=== PATIENT | female | born 1985 | race Two or more races ===

== ENCOUNTER 2018-07-01 08:20 | Inpatient (IN) | payer OTHER ==
[~2018-07-01] VITALS: Ht 154.9 cm; Wt 62.1 kg
[2018-07-01] VITALS (14 sets, daily range): BP systolic 100–130; BP diastolic 39–87
[~2018-07-01 08:20] MED LIST: Dexamethasone 20mg/5ml IVP ONE; ceFAZolin sod 1 GM in NS 55 ML IVPB ONE
[2018-07-01] MEDS ORDERED: OXYCONTIN20 MG ORAL (09:01)
[2018-07-01] MEDS ORDERED: LR 1000ml 1,000 ML IVLG SCH (09:02)
--- NOTE | 2018-07-01 09:03 | Immediate Post-Op Evaluation ---
John Paz MD Jul 01, 2018 09:03
[2018-07-01] MEDS ORDERED: Zemuron 50mg/5ml Inj IV ONE (09:04)
[2018-07-01] MEDS ORDERED: Heparin 5000 units/ml inj ONE (09:13)
[2018-07-01] MEDS ORDERED: Ropivacaine 5mg/ml Vial 30ml INJ ONE (09:14)
[2018-07-01] MEDS ORDERED: Thrombin 5000 units TOPIC ONE (09:14)
[2018-07-01] MEDS ORDERED: Gelfoam Size TOPIC ONE (09:14)
[2018-07-01] MEDS ORDERED: Lidocaine 1% 10mg/ml/Epi 0.005mg/ml 30ml vial INJ ONE (09:14)
[2018-07-01] MEDS ORDERED: TransDerm Scop 1mg/72HR Patch TDERMAL PRN (09:15)
[2018-07-01] MEDS ORDERED: LORazepam Inj 2mg/ml 1ml IV PRN (09:15)
[2018-07-01] MEDS ORDERED: Acetaminophen (Non formulary) 100 ML IV ONE (09:15)
[2018-07-01] MEDS ORDERED: Atropine Sulfate 0.4mg/ml inj IVP PRN (09:15)
[2018-07-01] MEDS ORDERED: Bacitracin 50000 Units Vial ONE (09:15)
[2018-07-01] MEDS ORDERED: Midazolam 2mg/2ml Inj IVP PRN (09:15)
[2018-07-01] MEDS ORDERED: Meperidine 50mg/ml Inj(FOR RIGORS ONLY) IVP PRN (09:15)
[2018-07-01] MEDS ORDERED: oxyCODONE HCL/Acetaminophen 5/325mg ORAL PRN (09:15)
[2018-07-01] MEDS ORDERED: Metoclopramide 10mg/2ml Inj IVP PRN (09:15)
[2018-07-01] MEDS ORDERED: HYDROcodone/Acetamin 5/325 tab ORAL PRN (09:15)
[2018-07-01] MEDS ORDERED: oxyCODONE 5mg IR tab ORAL PRN (09:15)
[2018-07-01] MEDS ORDERED: Lidocaine 1% Plain 30 ml INJ ONE (09:15)
[2018-07-01] MEDS ORDERED: Ketorolac 30mg Inj IV PRN ×2 (09:15)
[2018-07-01] MEDS ORDERED: Labetalol 5mg/ml 20ml vial IV PRN (09:15)
[2018-07-01] MEDS ORDERED: Chloraseptic Spray 20mL Bottle ORAL PRN (09:15)
[2018-07-01] MEDS ORDERED: Hydromorphone 0.5mg/0.5ml inj IVP PRN (09:15)
[2018-07-01] MEDS ORDERED: HYDROcodone/Acetamin 7.5/325 tab ORAL PRN (09:15)
[2018-07-01] MEDS ORDERED: fentaNYL 100 mcg/2 mL IV PRN (09:15)
[2018-07-01] MEDS ORDERED: DiphenhydrAMINE 50mg/ml Inj IVP PRN (09:15)
--- NOTE | 2018-07-01 09:17 | Anethesia Preoperative Eval ---
Anesthesia Pre-op PMH/ROS General Date of Evaluation: Jul 01, 2018 Anesthesiologist: Jackson ASA Score: ASA 2 Mallampati Score Class I : Soft palate, uvula, fauces, pillars visible Class II: Soft palate, uvula, fauces visible Class III: Soft palate, base of uvula visible Class IV: Only hard plate visible Mallampati Classification: Class I Surgeon: Tawana Diagnosis: Back Pain Surgical Procedure: ALIF L5-S1 Anesthesia History: none Social History: current smoker Family History: no anesthesia problems Allergies: Coded Allergies: No Known Allergies (Unverified , 07/01/18) Medications: see eMAR Patient NPO?: Yes Past Medical History Gastrointestinal/Genitourinary: Reports: other - Colitis Neurologic/Psychiatric: Reports: depression/anxiety, other - Migranes PSxH Narrative: Cholecystectomy, C/Sx2, Molar Anesthesia Pre-op Phys. Exam Physician Exam Last Vital Signs Date Time Temp Pulse Resp B/P (MAP) Pulse Ox O2 Delivery O2 Flow Rate FiO2 07/01/18 09:02 Room Air Constitutional: NAD Neurologic: CN 2-12 intact Cardiovascular: RRR Respiratory: CTA Gastrointestinal: S/NT/ND Airway Exam Mallampati Score: Class I MO: full ROM: full Teeth: intact Anesthesia Pre-op A/P Labs Urine Test Test 07/01/18 08:35 Urine HCG, Qualitative Pending Risk Assessment & Plan Assessment: ASA 2 Plan: GA, SED, GlideScope Go Status Change Before Surgery: No Pre-Antibiotics Dru Grams Ancef IV Given Within 1 Hr of Incision: Yes Time Given: 10:31 John Paz MD Jul 01, 2018 09:17
[2018-07-01] MEDS ORDERED: Dexamethasone 20mg/5ml ONE (09:25)
[2018-07-01] MEDS ORDERED: Lidocaine 1% MPF 10mg/ml 5ml ONE (09:46)
[2018-07-01] MEDS ORDERED: Dexamethasone 4mg/ml vial ONE (09:46)
[2018-07-01] MEDS ORDERED: Sodium Chloride 10ml vial INJ ONE (09:46)
[2018-07-01] MEDS ORDERED: fentaNYL 100 mcg/2 mL IV ONE ×2 (09:55→12:12)
[2018-07-01] MEDS ORDERED: NS Irrig 1000ml ONE (10:00)
[2018-07-01] MEDS ORDERED: Neostigmine 1mg/ml 10ml Inj ONE (10:00)
[2018-07-01] MEDS ORDERED: LR 1000ml ONE (10:00)
[2018-07-01] MEDS ORDERED: Sterile Water Irrig 1000ml IRRIG ONE (10:00)
[2018-07-01] MEDS ORDERED: Propofol 1,000mg/ 100ml btl IV ONE (10:00)
--- NOTE | 2018-07-01 10:13 | Pre-Procedure Note/Attestation ---
Pre-Procedure Note/Attestation Complete Prior to Procedure Planned Procedure: not applicable Procedure Narrative: ALIF L5-S1 anterior plate L5-S1 possible posterior microdiscectomy Indications for Procedure Pre-Operative Diagnosis: Post trauma back pain with L5-S1 instability Attestation I attest that I discussed the nature of the procedure; its benefits; risks and complications; and alternatives (and the risks and benefits of such alternatives ), prior to the procedure, with the patient (or the patient's legal financial sales representative). I attest that, if there was a reasonable possibility of needing a blood transfusion, the patient (or the patient's legal financial sales representative) was given the [facility] standardized written summary, pursuant to the Yrn Ulysses Blood Safety Act ([place] Health and Safety Code # 1645, as amended). I attest that I re-evaluated the patient just prior to the surgery and that there has been no change in the patient's H&P, except as documented below: Damir Gilliam MD Jul 01, 2018 10:13
--- NOTE | 2018-07-01 10:48 | Immediate Post-Op Evaluation ---
Immediate Post-Op Evalulation Immediate Post-Op Evalulation Procedure: ALIF L5-S1 Date of Evaluation: Jul 01, 2018 Time of Evaluation: 12:48 IV Fluids: 800 LR Blood Products: 0 Estimated Blood Loss: 50 Urinary Output: 0 Blood Pressure Systolic: 101 Blood Pressure Diastolic: 39 Pulse Rate: 76 Respiratory Rate: 16 O2 Sat by Pulse Oximetry: 96 Temperature (Fahrenheit): 97.6 Pain Score (1-10): 3 Nausea: No Vomiting: No Complications 0 Patient Status: awake, reacts, patent, extubated, none Hydration Status: adequate Dru Grams Ancef IV Given Within 1 Hr of Incision: Yes Time Given: 10:31 John Paz MD Jul 01, 2018 10:48
--- NOTE | 2018-07-01 10:49 | 48 Hour Post Anesthesia Eval ---
Post Anesthesia Evaluation Procedure: ALIF L5-S1 Date of Evaluation: Jul 01, 2018 Time of Evaluation: 12:48 Blood Pressure Systolic: 103 0: 56 Pulse Rate: 78 Respiratory Rate: 18 Temperature (Fahrenheit): 98.2 O2 Sat by Pulse Oximetry: 96 Airway: patent Nausea: No Vomiting: No Pain Intensity: 3 Hydration Status: adequate Cardiopulmonary Status: 0 Mental Status/LOC: patient returned to baseline Follow-up Care/Observations: 0 Post-Anesthesia Complications: 0 Follow-up care needed: N/A John Paz MD Jul 01, 2018 10:49
[2018-07-01] MEDS ORDERED: Phenylephrine 10mg/ml Vial ONE (10:54)
[2018-07-01] MEDS ORDERED: Glycopyrrolate 0.2mg/ml 1ml Vial ONE (12:00)
[2018-07-01] MEDS ORDERED: Naloxone 0.4mg/ml Inj ONE (12:03)
--- NOTE | 2018-07-01 12:06 | Brief Operative Note ---
Immediate Post Operative Note Operative Note Pre-op Diagnosis: Post trauma back pain with L5-S1 instability Procedure: ALIF L5-S1, Anterior plate, SSEP, Xray, High Power magnification Post-op Diagnosis: same as pre-op Surgeon: Tawana Additional Surgeons: Danie Anesthesiologist: Jackson Anesthesia: general Specimen: yes Complications: none Condition: stable Fluids: anesthesia Estimated Blood Loss: volume Drains: none Implant(s) used?: Yes Damir Gilliam MD Jul 01, 2018 12:06
[2018-07-01] MEDS ORDERED: Naloxone 0.4mg/ml Inj IVP PRN (12:15)
[2018-07-01] MEDS ORDERED: Rate Change PCA 1 Each MISC PRN (13:15)
[2018-07-01] MEDS ORDERED: PCA HYDROmorphone 1mg/ml 30 ML IV ONE (13:35)
--- NOTE | 2018-07-01 14:15 | Diagnostic Imaging Report ---
Indication: Back pain Comparison: None Findings: 5 fluoroscopic views of the lumbar spine were obtained. Intraoperative imaging showing anterior fusion of the L5-S1 with discectomy and disc replacement. IMPRESSION: Intraoperative imaging
--- NOTE | 2018-07-01 14:20 | NUR ---
NURSE NOTES: Patient arrived to unit at 1410 accompanied by RN. Received report from Cora DUEÑAS. Patient is asleep, but arousable to voice on arrival, no acute distress noted, patient reporting no pain. IV intact and asymptomatic, SCD's in place. Abdominal dressing assessed clean, dry, intact. Patient on 3L NC. VS assessed and stable. Patient's partner is at the bedside and updated on plan of care. Side rails upx3, bed low and locked, call light in reach. Will continue to monitor.
--- NOTE | 2018-07-01 15:00 | NUR ---
NURSE NOTES: Patient re-educated in use of CHIEF RADIOLOGY and reports understanding of provided education.
[2018-07-01] MEDS ORDERED: PCA HYDROmorphone 1mg/ml 30 ML IV PRN (15:15)
[2018-07-01] MEDS: HYDROmorphone 1mg/ml Carpuject SUBQ PRN ×2 (15:20→18:33)
[2018-07-01] MEDS ORDERED: Dronabinol 2.5mg Cap ORAL SCH (15:44)
[2018-07-01] MEDS: D5 1/2NS 1,000 ML IV SCH (16:30)
--- NOTE | 2018-07-01 16:35 | NUR ---
NURSE NOTES: Dr. Friend informed patient is on the unit. Stated he will come to see patient later.
--- NOTE | 2018-07-01 17:02 | Cardiology Progress Note ---
Assessment/Plan Assessment/Plan [id number] Objective Last 24 Hour Vital Signs Date Time Temp Pulse Resp B/P (MAP) Pulse Ox O2 Delivery O2 Flow Rate FiO2 07/01/18 14:55 16 07/01/18 14:25 16 07/01/18 14:10 16 07/01/18 14:10 98.2 07/01/18 13:55 98.2 62 20 120/74 100 Nasal Cannula 3 07/01/18 13:55 18 07/01/18 13:41 17 07/01/18 13:40 62 20 121/79 100 Nasal Cannula 3 07/01/18 13:25 60 17 115/75 100 Simple Mask 6 07/01/18 13:10 65 22 115/71 100 Simple Mask 6 07/01/18 13:00 67 20 108/64 100 Simple Mask 6 07/01/18 12:47 81 20 102/58 100 Simple Mask 6 07/01/18 12:42 72 19 100/54 96 Simple Mask 6 07/01/18 12:37 97.6 82 16 101/39 96 Simple Mask 6 07/01/18 12:37 78 18 96 07/01/18 12:36 76 16 96 07/01/18 09:02 Room Air Laboratory Tests Test 07/01/18 08:35 Urine HCG, Qualitative Negative (NEGATIVE) Hayden Friend MD Jul 01, 2018 17:02
--- NOTE | 2018-07-01 17:03 | NUR ---
NURSE NOTES: Informed Dr. Friend patient has no post-op antibiotics ordered. stated he will follow up with Dr. Gilliam regarding post-op antibiotics. No further orders.
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
[2018-07-01] MEDS: ceFAZolin sod 1 GM in D5W 55 ML IVPB SCH (18:50)
[2018-07-01] MEDS: PCA shift volume MISC SCH (19:00)
--- NOTE | 2018-07-01 19:26 | NUR ---
CASE MANAGEMENT: REVIEW 32Y/F DIRECT ADMIT FROM HOME CC: BACK PAIN SI: POST TRAUMA BACK PAIN WITH L5-S1 INSTABILITY ALIF L5-S1 07/01 T 97.1 HR 68 RR 18 BP 106/69 SAT 96% SIMPLE MASK FLOW RATE 6.0 UA: HCG QUAL NEG SI: LACTATED RINGER'S IV X1 DECADRON IV X1 CEFAZOLIN IV X1 ZEMURON IV X1 MAG SULFATE IV X1 PATIENT ADMITTED TO MED/SURG UNIT 07/01/2018 DCP: PATIENT IS FROM HOME
--- NOTE | 2018-07-01 19:41 | NUR ---
HAND-OFF: Report given to Irma DUEÑAS. Patient is in stable condition.
--- NOTE | 2018-07-01 20:15 | NUR ---
NURSE NOTES: Received report from LEANA Samuels. Patient is aaox4. VSS, no shortness of breath. Neuro checks WNL, mild numbness tingling left toe. Will continue to monitor. Pain controlled by AS400 PROGRAMMER ANALYST. AS400 PROGRAMMER ANALYST teaching reinforced. IV site intact/patent with fluids running. Spouse at bedside. Bed low, call light within reach.
--- NOTE | 2018-07-01 21:30 | Operative Note - Dictated ---
DATE OF OPERATION: 07/01/2018 SURGEON: 1. Damir Gilliam, PhD, M.D., Orthopedic spine. 2. Dr. Helton, Vascular. ANESTHESIOLOGIST: John Paz M.D. ANESTHESIA: General with intubation. ADMITTING/PREOPERATIVE DIAGNOSIS: Post trauma lumbar back pain with instability. POSTOPERATIVE DIAGNOSIS: Post trauma lumbar back pain with instability. OPERATIVE PROCEDURE: Anterior (right) L5-S1 interbody reconstruction, fusion, correction deformity, internal fixation, anterior internal plate fixation, SSEP monitoring, high-power magnification dissection, intraoperative x-rays interpreted by surgeons. Placement of osteopromotive material. ESTIMATED BLOOD LOSS: Minimal. COMPLICATIONS: None. POSTOP CONDITION: Good/stable. DESCRIPTION OF PROCEDURE: The patient was brought to the operating room and in supine position, general anesthesia with intubation was induced. IV antibiotics, IV Decadron were administered 30 minutes prior to incision time. The patient was appropriately positioned, sterilely prepped and draped free in usual sterile fashion. Please see separate report by Dr. Helton for access and closure, vascular. L5-S1 was approached from the right lateral aspect by vascular surgery. Definition of midline and correct space in AP and lateral planes with sterile needle placed 3 mm into the disk space. Level marked. Needle removed. Annulotomy performed followed with diskectomy to the posterior longitudinal ligament. Midline rent in the posterior longitudinal ligament/anulus identified and retrieval of the known herniated nucleus pulposus. No CSF leak at any time. SSEP monitoring stable. Appropriate graft dimensions determined with trials with fluoroscopic guidance interpreted by surgeons. A 4-degree lordotic aero-L prosthesis containing Bio-4 osteopromotive material was tamped in position under direct observation, high-power magnification with fluoroscopic guidance. Fluoroscopic imaging revealed excellent alignment and positioning. Internal fixation placed. Anterior internal plate fixation was undertaken with four 22 mm screws placed in a compressive fashion and locked into position. AP and lateral radiographs were obtained, recorded, and printed demonstrating excellent alignment and positioning. The patient was stable at all times. SSEP monitoring stable. Wound was copiously irrigated with antibiotic-containing saline. Please see closure report by Dr. Helton. Damir Gilliam M.D. DR: BARBIE JOB#: [id number] CC:
[2018-07-01] MEDS: Dronabinol 2.5mg Cap ORAL SCH (22:38)
--- NOTE | 2018-07-02 | Operative Note - Dictated ---
DATE OF OPERATION: 07/01/2018 VASCULAR SURGEON: Benito Helton M.D. SPINE SURGEON: Damir Gilliam M.D. PREOPERATIVE DIAGNOSIS: Lumbar pain. POSTOPERATIVE DIAGNOSIS: Lumbar pain. PROCEDURE PERFORMED: Anterior retroperitoneal exposure of L5-S1 vertebral interspace, right retroperitoneal approach. INDICATIONS: The patient is a very pleasant woman who was seen prior to surgery. She has been scheduled for an anterior spine surgery at L5-S1. She has no prior history of deep venous thrombosis or bleeding complications. 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 As she has been made aware of the risks of vascular surgery including vascular injury, possible need for blood transfusion, deep venous thrombosis. DESCRIPTION OF FINDINGS: A low-transverse incision was made through her prior scar. Flaps were raised superiorly. A right retroperitoneal approach was used. There was no peritoneal or ureteral violation. There was no vascular injury. Exposure of L5-S1 was obtained below the iliac bifurcation confirmed using fluoroscopy. On completion, the peritoneum and ureter were intact. The iliac vessels were intact. BLOOD LOSS: Less than 100 mL. COMPLICATIONS: None. DESCRIPTION OF PROCEDURE: The patient was taken to the operating room. General anesthesia was used. Antibiotics were given. The patient's abdomen was prepped and draped. Appropriate time-out for the procedure taken. A low-transverse incision was made above the pubic symphysis. Flaps were raised superiorly. The anterior fascia was incised longitudinally in the midline. A plane was identified posterior to the right rectus abdominis and developed posterolaterally towards the patient's right. Retroperitoneal space was entered below the arcuate line. The peritoneum and ureter were mobilized towards the patient's left exposing the right common iliac artery and vein. Dissection was carried on the medial surface of the right common vein and the middle sacral vessels were ligated with vascular clips. Dissection was carried superiorly along the medial aspect of the right common iliac vein until the confluence of the right and left iliac veins was identified. This allowed us to then retract the right and left iliac veins laterally to expose the anterior surface of L5-S1. The Omni retractor was set in place. Fluoroscopy was used to confirm the appropriate level. Instrumentation performed at L5-S1 was dictated separately. On completion, the retractor was gently removed. The peritoneum and ureter were intact. The iliac vessels were intact. At this point, the anterior fascia was then closed using #1 PDS in a running fashion and then the skin and subcutaneous tissue were closed with 3-0 Vicryl and 4-0 Monocryl in running subcuticular closure technique. Benito Helton M.D. DR: Fly JOB#: [id number] CC:
[2018-07-02] MEDS: HYDROmorphone 1mg/ml Carpuject SUBQ PRN ×5 (00:04→20:05)
[2018-07-02] MEDS: D5 1/2NS 1,000 ML IV SCH ×3 (00:04→14:46)
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
[2018-07-02] MEDS: Dronabinol 2.5mg Cap ORAL SCH ×3 (06:04→22:23)
[2018-07-02] MEDS: ceFAZolin sod 1 GM in D5W 55 ML IVPB SCH ×2 (06:04→12:51)
[2018-07-02] MEDS: PCA shift volume MISC SCH (07:00)
--- NOTE | 2018-07-02 07:41 | NUR ---
NURSE NOTES: Pt awake Dr Barrett in to see pt, explained pain medications. Pt able to understand directions. Shaw light is in reach
--- NOTE | 2018-07-02 07:49 | NUR ---
HAND-OFF: Report given to LEANA Carias. Patient stable.
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
--- NOTE | 2018-07-02 11:20 | Cardiology Progress Note ---
Assessment/Plan Assessment/Plan Lumbar spine injury, status post surgery. dressign look clean and dry no surrounding erythema seems to be doing ok no flatus or bm has walked dvt ppx IS encouraged Subjective Cardiovascular: Reports: lightheadedness; Denies: chest pain Respiratory: Denies: shortness of breath Gastrointestinal/Abdominal: Reports: abdominal pain; Denies: blood in stool, nausea Genitourinary: Denies: frequency Objective Last 24 Hour Vital Signs Date Time Temp Pulse Resp B/P (MAP) Pulse Ox O2 Delivery O2 Flow Rate FiO2 07/02/18 09:00 Room Air 07/02/18 08:00 16 07/02/18 04:00 18 07/02/18 00:00 16 07/01/18 21:00 Room Air 07/01/18 20:00 98.0 79 20 105/60 (75) 99 07/01/18 20:00 16 07/01/18 19:03 98.2 07/01/18 17:10 98.6 75 18 123/80 (94) 99 07/01/18 16:10 97.1 68 18 106/69 (81) 96 07/01/18 16:00 16 07/01/18 15:25 16 07/01/18 15:10 97.7 71 18 111/72 (85) 100 07/01/18 14:55 16 07/01/18 14:40 98.2 85 16 121/79 (93) 100 07/01/18 14:25 16 07/01/18 14:15 Nasal Cannula 3.0 07/01/18 14:10 16 07/01/18 14:10 98.2 07/01/18 14:10 97.4 82 16 130/87 (101) 100 07/01/18 13:55 98.2 62 20 120/74 100 Nasal Cannula 3 07/01/18 13:55 18 07/01/18 13:41 17 07/01/18 13:40 62 20 121/79 100 Nasal Cannula 3 07/01/18 13:25 60 17 115/75 100 Simple Mask 6 07/01/18 13:10 65 22 115/71 100 Simple Mask 6 07/01/18 13:00 67 20 108/64 100 Simple Mask 6 07/01/18 12:47 81 20 102/58 100 Simple Mask 6 4/26/19 12:42 72 19 100/54 96 Simple Mask 6 07/01/18 12:37 97.6 82 16 101/39 96 Simple Mask 6 07/01/18 12:37 78 18 96 07/01/18 12:36 76 16 96 General Appearance: no apparent distress, alert Neck: supple Cardiovascular: normal rate, regular rhythm Respiratory/Chest: lungs clear Abdomen: normal bowel sounds, non tender, soft Extremities: no swelling Intake and Output 07/01/18 07/02/18 19:00 07:00 Intake Total 1395 ml 1372 ml Output Total 50 ml Balance 1345 ml 1372 ml Intake Oral 20 ml IV Total 1375 ml 1372 ml Output Estimated Blood Loss 50 ml # Voids 3 Hayden Friend MD Jul 02, 2018 11:20
--- NOTE | 2018-07-02 11:22 | NUR ---
NURSE NOTES: Pt up with PT tolerated well. Sat at bedside for 15 minutes. Returned to bed. Zofran given for complaints of nausea. Charge Nurse made aware per environmental services, air conditioning not functiong, . Pt refused to move rooms at this time, stated she will wait for fiance
[2018-07-02 11:55] VITALS: BP 101/50
--- NOTE | 2018-07-02 12:02 | NUR ---
NURSE NOTES: Dr Gilliam phoned to follow up on pt. Made aware that pt does have bowel sounds but is not passing . Flatus, per pt feels her stomach grumbling. Dr informed that pt was up with Physical Therapy, Gave okay to upgrade to clear liquid diet. Pt on the phone with [facility] who is stated he was bringing pt Suzan Tyler. Pt informed the importance of following meal orders. Explained the complication of procedure anteriorly for a posterior surgery. " I cant have crackers' Pt informed and educated on clear liquid diet. Per Md if diet is tolerated can upgrade to full liquid
--- NOTE | 2018-07-02 13:41 | NUR ---
CASE MANAGEMENT: REVIEW SI: POST TRAUMA BACK PAIN WITH L5-S1 INSTABILITY ALIF L5-S1 07/01 T 97.2 HR 60 RR 20 BP 101/50 SAT 100% ROOM AIR SI: MARINOL PO Q8HR CEFAZOLIN IV Q8HR D5 1/2 NS IVF @125ML/HR CORRECTIONAL MAINTENANCE TECHNICIAN DILAUDID PT EVAL CLEAR LIQUID DIET MED/SURG STATUS DCP: PATIENT IS FROM HOME
--- NOTE | 2018-07-02 14:29 | NUR ---
PT Note PT jose completed, treatment initiated. Patient was able to ambulate with the FWW; c/o pain on her surgical site. Patient needs PT services to increase her muscle strength and educate on proper body mechanics to improve her functional mobility and gait. Addendum: 07/02/18 at 1430 by LAURA PETER PT Amended: Links added.
--- NOTE | 2018-07-02 14:59 | NUR ---
NURSE NOTES: Pt up with physical therapy, at thsi point has not had flatus. Tolerated lunch well . no n/v related to meal. Current plan of care will be followed
[2018-07-02 15:55] VITALS: BP 105/81
--- NOTE | 2018-07-02 18:02 | NUR ---
NURSE NOTES: Dr Barrett followed up on pt and wanted to know if [facility] picked up pain medication. Aircraft Cleaning Supervisor asked pt if [facility] filled prescription for Percocet. Pt required pt teaching for having medications at bedside. Pt denies taking any additional doses, "maybe my fiance took some, you can look in my purse " Risk explained verbalized understanding. Total of 75 ordered, 7 are missing. Charge Nurse made aware, and verified count. called to inform him that 7 pills are missing. informed that medications will be sent down to pharmacy. No New Orders from Dr Arnold Rivera also informed that pt is requesting Marinol to take home, per MD that mediation can only be taken in the hospital. Pty made aware of Dr statement and recommendations
--- NOTE | 2018-07-02 18:15 | Progress Note ---
DATE: 07/02/2018 NOTE: "POOR AUDIO QUALITY" ACUTE PAIN MANAGEMENT PHYSICIAN PROGRESS NOTE MEDICATIONS: Medication administration record reviewed. Medications include IV fluid, Pepcid, DATA MANAGEMENT ENGINEER Dilaudid, Marinol, and Ancef. P.r.n. medications include Chloraseptic spray, Zofran, Mylanta, Benadryl, scopolamine patch, Soma, subcutaneous Dilaudid, Phenergan, oxycodone, and Narcan. LABORATORY STUDIES: No interval laboratory studies. OBJECTIVE: Vital signs within normal limits. Afebrile, pulse 79, respirations 20, blood pressure 105/60, and oxygen saturation 99% on room air. I spent over 60 minutes in consultation today. I saw the patient at bedside with the day nurse, LEANA Solis, along with the day nurse, LEANA Carias. The patient appears neurologically intact grossly. She has good motor strength in bilateral lower extremities with 5/5 dorsiflexion and 5/5 plantar flexion. There still was no flatus after her ALIF, anterior lumbar interbody fusion surgery yesterday. We will wait for improvement in bowel function, as evidenced by passing gas. In the meantime, the patient will continue on her IV fluids. She is voiding urine well. She will train with physical therapy later today. Incentive spirometer is at the bedside to encourage good pulmonary toilet. The patient does have sequential compression pneumatic devices in place for DVT prophylaxis. She is on scheduled Marinol that seems to be helpful for baseline analgesia. There was no oversedation. She has received multiple breakthrough doses of subcutaneous Dilaudid already. I did encourage the patient and the nurse to use the oral oxycodone as well. I did provide a prescription for Percocet for outpatient usage to the patient's boyfriend, Jose Carlos, who will try to go to a local pharmacy to try to get the medication dispensed. I will continue the DATA MANAGEMENT ENGINEER for this morning, however, once the DATA MANAGEMENT ENGINEER syringe empties, I will discontinue the DATA MANAGEMENT ENGINEER in order to help expedite her hospital discharge. She has tolerated subcutaneous Dilaudid p.r.n. injections well so far and they are made available every 3 hours p.r.n. Vikram Barrett M.D. DR: HE JOB#: [id number] CC:
--- NOTE | 2018-07-02 18:31 | NUR ---
NURSE NOTES: Pt continues not to pass flatus, bowel sound hypoactive in all quadrants. No nausea at this time. IV site remains patent
--- NOTE | 2018-07-02 18:49 | NUR ---
NURSE NOTES: No signs of possible dermatological side effects related to antibiotic therapy. Dose complete
--- NOTE | 2018-07-02 19:30 | NUR ---
NURSE NOTES: Received report from LEANA Carias. Patient is aaox4. VSS, no shortness of breath. Pain 5/10 . PROMOTIONAL DEMONSTRATOR teaching reinforced. IV site patent, fluids running. Neuro checks WNL Per patient, has not passed gas. Ambulated to restroom, tolerated well. Bed low, call light within reach.
--- NOTE | 2018-07-02 19:41 | NUR ---
HAND-OFF: Report given to Charo DUEÑAS.
[2018-07-02 20:00] VITALS: BP 107/70
--- NOTE | 2018-07-02 20:26 | NUR ---
NURSE NOTES: Per Dr. Barrett, IV fluids and TECHNICAL MANAGER CHEMICAL PLANT d/c'd. Patient toleration oral fluids. Dilaudid 1 mg subQ given for pain 7/10 lower back. Will continue to monitor.
[2018-07-03] MEDS: HYDROmorphone 1mg/ml Carpuject SUBQ PRN ×4 (01:53→19:55)
[2018-07-03 04:00] VITALS: BP 132/66
[2018-07-03] MEDS: oxyCODONE 5mg IR tab ORAL PRN ×3 (04:16→23:59)
[2018-07-03] MEDS: Dronabinol 2.5mg Cap ORAL SCH ×3 (05:48→21:21)
--- NOTE | 2018-07-03 07:15 | Progress Note ---
DATE: 07/03/2018 ACUTE PAIN MANAGEMENT PHYSICIAN PROGRESS NOTE MEDICATIONS: Medication administration record reviewed. Medications include Mylanta, Soma, Benadryl, Marinol, Pepcid, Dilaudid, Narcan, Zofran, oxycodone, Chloraseptic spray, and Phenergan. LABORATORY STUDIES: No interval laboratory studies. OBJECTIVE: VITAL SIGNS: Afebrile, pulse 100, respirations 18, blood pressure 132/66, and oxygen saturation 98% on room air. I spent over 60 minutes in consultation today. I saw the patient at the bedside with the nurse RN, Irma. The surgeon, Dr. Gilliam advanced the patient's diet to liquids yesterday after she was found to have active bowel sounds. The patient did tolerate the clear liquid diet and the full liquid diet. However, she still has not yet passed positive flatus, so we will not advance her diet further at this point. The patient's nausea, which often is chronic, has not been a big factor. Here in the hospital, she has tolerated the oral oxycodone pills at a dose of 15 mg here in the hospital. I would continue the breakthrough p.r.n. oxycodone along with the breakthrough subcutaneous Dilaudid. I have discontinued the CLAY THROWER to encourage ambulation and movement in and out of bed. The patient's boyfriend, Jose Carlos was able to take my Percocet prescription to an outpatient pharmacy and fill the prescription for outpatient usage. Quantity of 75 was dispense for outpatient usage. The patient will increase her incentive spirometer usage on my recommendation. The patient will continue to increase her ambulation as tolerated. We will await for flatus and improvement in her return of bowel function after ALIF procedure. She will continue to increase her ambulation as tolerated with the physical therapist and the nursing staff. She is breathing comfortably on room air and denies any shortness of breath or chest pain. Vikram Barrett M.D. DR: HE JOB#: [id number] CC:
--- NOTE | 2018-07-03 07:21 | NUR ---
HAND-OFF: Report given to LEANA Samuels. Patient stable.
[2018-07-03 08:00] VITALS: BP 101/65
--- NOTE | 2018-07-03 08:11 | NUR ---
NURSE NOTES: Received report from Irma DUEÑAS. Patient is awake alert and oriented x4 during rounds, no acute distress noted. Reporting pain in lower abdomen, medicated by police shift commander per order. IV intact and asymptomatic. SCD's in place. No complaints of numbness or tingling in extremities. Abdominal dressing clean, dry, intact. Patient updated on plan of care. Side rails upx2, bed low and locked, call light in reach. Will continue to monitor.
[2018-07-03] MEDS ORDERED: D5 1/2NS 1000ml IV ONE (08:38)
--- NOTE | 2018-07-03 11:42 | Cardiology Progress Note ---
Assessment/Plan Assessment/Plan Lumbar spine injury, status post surgery. dressign look clean and dry no surrounding erythema seems to be doing ok NO SIGN OF ASPIRATION no flatus or bm but has bs has walked dvt ppx IS encouraged Subjective Cardiovascular: Denies: chest pain, lightheadedness Respiratory: Denies: shortness of breath Gastrointestinal/Abdominal: Reports: abdominal pain Genitourinary: Denies: burning Subjective ice chips whent downthe wrong tube made her cough and that caused her abd pain to worsen Objective Last 24 Hour Vital Signs Date Time Temp Pulse Resp B/P (MAP) Pulse Ox O2 Delivery O2 Flow Rate FiO2 07/03/18 11:29 99.1 07/03/18 09:00 Room Air 07/03/18 04:00 99.1 100 18 132/66 (88) 98 07/02/18 21:00 Room Air 07/02/18 20:00 18 07/02/18 20:00 98.0 71 20 107/70 (82) 100 07/02/18 16:00 14 07/02/18 15:55 98.0 70 20 105/81 (89) 99 07/02/18 12:00 16 07/02/18 11:55 97.2 60 20 101/50 (67) 100 General Appearance: no apparent distress, alert Cardiovascular: normal rate Respiratory/Chest: lungs clear Abdomen: normal bowel sounds, soft, other - dressing is dry and clear Extremities: no swelling Intake and Output 07/02/18 07/03/18 19:00 07:00 Intake Total 2150 ml Balance 2150 ml Intake Oral 720 ml IV Total 1430 ml # Voids 8 Microbiology Date/Time Source Procedure Growth Status 07/01/18 09:00 Nasal Nares MRSA Culture - Final NO METHICILLIN RESISTANT STAPH AUREUS... Complete Hayden Friend MD Jul 03, 2018 11:42
[2018-07-03 12:00] VITALS: BP 108/63
[2018-07-03 16:00] VITALS: BP 114/68
--- NOTE | 2018-07-03 19:33 | NUR ---
HAND-OFF: Report given to Irma DUEÑAS. Patient is in stable condition.
[2018-07-03 20:00] VITALS: BP 129/79
--- NOTE | 2018-07-03 20:09 | NUR ---
NURSE NOTES: Received report from LEANA Samuels. Patient is aaox4. Pain 9/10 Dilaudid subQ given. Bowel sounds noted, has not passed gas. IV site patent. Bed low, call light within reach.
[2018-07-04] VITALS: BP_SYST 108; BP_SYST 124; BP_DIAS 62; BP_DIAS 84
[2018-07-04 04:00] VITALS: BP 124/84
[2018-07-04] MEDS: oxyCODONE 5mg IR tab ORAL PRN ×4 (04:09→19:13)
[2018-07-04] MEDS: Dronabinol 2.5mg Cap ORAL SCH ×3 (05:24→21:17)
--- NOTE | 2018-07-04 05:29 | NUR ---
NURSE NOTES: Patient ambulated 2 laps in hallway with FWW and RN assist. Tolerated well. Tylenol given for headache.
--- NOTE | 2018-07-04 06:15 | Progress Note ---
DATE: 07/04/2018 ACUTE PAIN MANAGEMENT PHYSICIAN PROGRESS NOTE MEDICATIONS: Medication administration record reviewed. Medications include Phenergan, Chloraseptic spray, , Zofran, Narcan, Dilaudid, Pepcid, Marinol, Benadryl, Soma, Mylanta, and Tylenol. LABORATORY STUDIES: No interval laboratory studies. OBJECTIVE: VITAL SIGNS: T-max last night of 100.6, currently afebrile. Pulse 102, respirations 20, blood pressure 129/79, and oxygen saturation 99% on room air. I spent over 60 minutes in consultation today. I saw the patient at the bedside with the nurse RN, Irma. I also spoke with the surgeon, Dr. Gilliam and yesterday's day nurse RN, Abril. The patient still has not been passing flatus. She does have a history of 2 previous C-sections, so it is imperative that the patient ambulate much more aggressively to initiate positive flatus. She has been tolerating full liquid diet, which will continue until she is better evidence of buddhist of bowel function. The patient has only been walking out of bed with the physical therapist once or twice per day. I implored the nursing team and the patient to be much more aggressive walking. This 32-year-old thin woman should be walking greater than 150 feet multiple times per day. I have scheduled with the nursing team to dose the pain medications, followed by walking exercises after the pain medications have peaked. With concerns of the narcotics slowing down her bowel function, I have greatly reduced the dosing of her subcutaneous Dilaudid to every 12 hours. The goal is simply to make available a dose for when she discharged to home. She already has a supply of 75 tablets of Percocet for support and picked up from the outside pharmacy. This bottle is being held here in the pharmacy at the hospital and will be dispensed to the patient at the time of discharge. Due to the patient does not have a ride home, she will contact the defense attorney to arrange an [employer] car service back to her home in [place]. The patient admits that she has been very poorly compliant with her incentive spirometer. She has not been coughing at end-expiration. The patient is a chronic smoker, so I explained that it is extremely important for her to aggressively cough for good pulmonary toilet. I will increase the dose of her oxycodone instant release from 15 mg to 20 mg. She has tolerated several doses of the oxycodone. The frequency to every three hours, which I will encourage if needed to effect increased ambulation. Vikram Barrett M.D. DR: SACHI JOB#: [id number] CC:
--- NOTE | 2018-07-04 07:33 | NUR ---
HAND-OFF: Report given to LEANA Samuels. Patient stable.
--- NOTE | 2018-07-04 07:45 | NUR ---
NURSE NOTES: Received report from Irma DUEÑAS. Patient is awake alert and oriented x4, no acute distress noted. Patient is reporting pain and nausea, will medicate as ordered. Patient reports she is still not passing flatus. Side rails upx2, bed low and locked, call light in reach. Will continue to monitor.
[2018-07-04 08:00] VITALS: BP 101/60
[2018-07-04] MEDS ORDERED: Docusate 100mg/10ml Liq NG SCH (09:00)
[2018-07-04] MEDS ORDERED: Docusate 100mg/10ml Liq ORAL SCH ×2 (09:45→18:00)
[2018-07-04 12:00] VITALS: BP 98/58
[2018-07-04] MEDS ORDERED: Magnesium Citrate Liq Btl ORAL SCH (13:00)
--- NOTE | 2018-07-04 13:30 | NUR ---
NURSE NOTES: Gave patient first 100mL of mag citrate per MD order. Also educated patient to ambulate as tolerated to promote bowel movement. Patient stated she understands education and will ambulate. Patient also encouraged to continue using IS. Will continue to monitor.
--- NOTE | 2018-07-04 14:31 | NUR ---
CASE MANAGEMENT:REVIEW 07/04/18 SI: POD #3 98.3 56 18 98/58 96% ON RA IS: DILAUDID SQ Q12HRS PRN MAG CITRATE PO X1 MARINOL PO Q8HRS PEPCID PO BID : MED/SURG STATUS 3 [facility]
[2018-07-04] MEDS ORDERED: HYDROmorphone 1mg/ml Carpuject SUBQ PRN ×2 (15:00)
--- NOTE | 2018-07-04 18:18 | NUR ---
NURSE NOTES: Patient up ambulating in hallway with steady gait. No acute distress noted.
--- NOTE | 2018-07-04 19:16 | NUR ---
NURSE NOTES: Patient given second dose (100mL) of mag citrate per MD order. Patient reports she is starting to feeling more "rumbling" in her bowels. Will endorse to next shift to give third dose in 6 hours if patient does not have BM.
--- NOTE | 2018-07-04 19:26 | NUR ---
HAND-OFF: Report given to Irma DUEÑAS. Endorsed to give last dose (100mL) of mag citrate if patient does not have BM in 6 hours. Patient is in stable condition.
--- NOTE | 2018-07-04 19:47 | Cardiology Progress Note ---
Assessment/Plan Assessment/Plan Lumbar spine injury, status post surgery. dressign look clean and dry no surrounding erythema seems to be doing ok dvt ppx IS encouraged no bm yet mag citrate being fgiven ecnouarage to walks Subjective Cardiovascular: Denies: chest pain, lightheadedness Respiratory: Denies: shortness of breath Gastrointestinal/Abdominal: Denies: abdominal pain Genitourinary: Denies: no symptoms Subjective drinkgin soem , takign cathartics Objective Last 24 Hour Vital Signs Date Time Temp Pulse Resp B/P (MAP) Pulse Ox O2 Delivery O2 Flow Rate FiO2 07/04/18 12:00 98.3 56 18 98/58 (71) 96 07/04/18 09:00 Room Air 07/04/18 08:00 98.6 68 18 101/60 (74) 97 07/04/18 04:00 99.0 76 20 124/84 (97) 100 07/04/18 00:00 98.6 76 18 108/62 (77) 98 07/03/18 21:00 Room Air 07/03/18 20:26 98.8 07/03/18 20:00 100.6 102 20 129/79 (96) 99 General Appearance: no apparent distress, alert Neck: supple Cardiovascular: normal rate, regular rhythm Respiratory/Chest: lungs clear, normal breath sounds Abdomen: non tender, soft, hypoactive bowel sounds Extremities: no swelling Intake and Output 07/03/18 07/04/18 19:00 07:00 Intake Total 650 ml Balance 650 ml Intake Oral 650 ml # Voids 2 Hayden Friend MD Jul 04, 2018 19:47
[2018-07-04 20:00] VITALS: BP 118/80
--- NOTE | 2018-07-04 21:24 | NUR ---
NURSE NOTES: Received report from LEANA Samuels. Patient is aaox4. VSS, pain 7/10 oxycodone given by LEANA Samuels. Patient states she has not passed gas yet. second dose of mag citrate given @ 1900. Discharge plan in place. Plan of care discussed. Will continue to monitor.
[2018-07-05] VITALS: BP 105/58
[2018-07-05] MEDS: oxyCODONE 5mg IR tab ORAL PRN ×4 (00:08→20:17)
--- NOTE | 2018-07-05 05:15 | Progress Note ---
DATE: 07/05/2018 ACUTE PAIN MANAGEMENT PHYSICIAN PROGRESS NOTE OBJECTIVE: VITAL SIGNS: T-max last night 99.5 at 8 p.m., currently afebrile, pulse 93, respirations 18, blood pressure 118/80, and oxygen saturation 99% on room air. LABORATORY STUDIES: No interval laboratory studies. MEDICATIONS: Medication administration record reviewed. Medications include Pepcid and Marinol. PRN medications include Chloraseptic spray, Zofran, Mylanta, Benadryl, Narcan, Tylenol, oxycodone, and Dilaudid. I spent over 60 minutes in consultation over the past 24 hours. I had multiple discussions with the surgeon, Dr. Gilliam along with the nursing team. I spoke with the day nurse, RN, Abril, and saw the patient at bedside this morning with the night nurse, RN, Irma. The patient is alert and oriented x3. The patient states that her leg pain has much improved compared to preop. She does still have considerable lumbar spine pain, including incisional pain. The increased dose of oral oxycodone 2 by mouth 20 milligrams has been more affective than the previous dose of 15 mg. The patient has been receiving her oral oxycodone fairly regularly, every 4 to 5 hours. She has not required the breakthrough Dilaudid injections, this improvement is encouraging. The patient has been increasing her ambulation considerably. She did use a front wheel walker yesterday, but has increased to ambulation greater than 400 feet. Later today, she expects that she may be able to walk without the walker. She has been able to walk in and out of bed to the restroom without any assistance. The patient has been more aggressive using her incentive spirometer. She has had no fevers over 99.5 over the past 36 hours with better end-expiratory coughing. The patient continues to receive her Marinol every 8 hours around the clock, and has had ample supply of marijuana for home usage. The patient still has not yet had a bowel movement. The surgeon, Dr. Gilliam dosed the patient with magnesium citrate 100 mg every 6 hours. The patient has received 3 doses, but we are still awaiting for a bowel movement. Hopefully with further time and continued aggressive ambulation, the patient's bowel movement will occur. She has been tolerating full liquid diet including ____ chicken broth without any vomiting. The patient does have chronic nausea, for which she uses her medical marijuana at home. We will continue to provide supportive care and await bowel movement prior to discharge. The patient has had 2 previous sections which may be contributing to postoperative delayed recovery of bowel function ____ previous surgical abdominal adhesions. Dr. Gilliam is following the patient's progress closely as ____. Vikram Barrett M.D. DR: MIGUEL JOB#: [id number] CC:
[2018-07-05] MEDS: Dronabinol 2.5mg Cap ORAL SCH ×3 (06:31→22:34)
[2018-07-05 08:00] VITALS: BP 107/70
--- NOTE | 2018-07-05 08:06 | NUR ---
HAND-OFF: Report given to LEANA Malcolm. Patient stable. Still no flatus or BM. Zofran IVP given for nausea. Encouraged to ambulate.
--- NOTE | 2018-07-05 08:14 | NUR ---
NURSE NOTES: During shift shift change patient alert awake with out distress, seating on bed eating breakfast, denies pain except abdominal discomfort, no neuro deficit noted, bed on low position locked, call light with in reach will continue to monitor.
[2018-07-05] MEDS: Docusate 100mg/10ml Liq ORAL SCH ×2 (09:12→17:24)
[2018-07-05] MEDS ORDERED: Magnesium Citrate Liq Btl ORAL ONE (09:30)
[2018-07-05] MEDS ORDERED: Relistor 12mg/0.6ml Vial SUBQ ONE (10:00)
[2018-07-05 12:20] VITALS: BP 109/69
--- NOTE | 2018-07-05 14:04 | Cardiology Progress Note ---
Assessment/Plan Assessment/Plan Lumbar spine injury, status post surgery. dressing look clean and dry no surrounding erythema seems to be doing ok dvt ppx IS encouraged no bm yet mag citrate being fgiven ecnouarage to walks d/w dr rosado Subjective Cardiovascular: Denies: chest pain, lightheadedness Respiratory: Denies: shortness of breath Gastrointestinal/Abdominal: Reports: constipated, other; Denies: abdominal pain Genitourinary: Denies: burning Subjective passed gas Objective Last 24 Hour Vital Signs Date Time Temp Pulse Resp B/P (MAP) Pulse Ox O2 Delivery O2 Flow Rate FiO2 07/05/18 00:00 98.7 71 16 105/58 (74) 99 07/04/18 21:00 Room Air 07/04/18 20:00 99.5 93 18 118/80 (93) 99 General Appearance: no apparent distress, alert Neck: supple Cardiovascular: normal rate, regular rhythm Respiratory/Chest: lungs clear Abdomen: normal bowel sounds, non tender Extremities: no swelling Intake and Output 07/04/18 07/05/18 19:00 07:00 Intake Total 750 ml Balance 750 ml Intake Oral 750 ml Hayden Friend MD Jul 05, 2018 14:04
--- NOTE | 2018-07-05 15:21 | NUR ---
CASE MANAGEMENT:REVIEW 07/05/18 SI: POD #4 98.7 71 16 105/58 99% ON RA IS: DILAUDID SQ Q12HRS PRN MAG CITRATE PO X1 MARINOL PO Q8HRS PEPCID PO BID : MED/SURG STATUS 3 [facility]: DC AFTER HAVING BOWEL MOVEMENT
[2018-07-05 16:00] VITALS: BP 104/67
--- NOTE | 2018-07-05 17:49 | NUR ---
NURSE NOTES: Patient reported she passed gas but no bowel movement yet bowel sound present but hypoactive, abdomen large round but soft to touch. patient refused Docusate stating the liquid docusate is making her nauseated. neuro check stable able to ambulate during my shift. one time pain medication given.
--- NOTE | 2018-07-05 19:30 | NUR ---
NURSE NOTES: Report received from LEANA Malcolm. No distress noted, bed in low position, locked, side rails up x2. Call light within reach
--- NOTE | 2018-07-05 19:30 | NUR ---
HAND-OFF: Report given to LEANA Irizarry patient stable condition.
[2018-07-05 20:00] VITALS: BP 110/67
--- NOTE | 2018-07-05 20:10 | NUR ---
NURSE NOTES: Dr Barrett called in to check on patient. No BM yet, flatus present. Dr gave orders: AURELIANO Ramirez, advance diet to regular. Noted James was DC'd earlier today.
[2018-07-06] VITALS: BP 110/60
[2018-07-06] MEDS: oxyCODONE 5mg IR tab ORAL PRN ×3 (03:05→18:08)
[2018-07-06 04:00] VITALS: BP 105/66
--- NOTE | 2018-07-06 05:55 | NUR ---
NURSE NOTES: Dr Barrett called to check on patient. No BM yet. Pain med given at 0300 am, medication due shortly.
[2018-07-06] MEDS: Dronabinol 2.5mg Cap ORAL SCH ×2 (06:02→14:47)
--- NOTE | 2018-07-06 07:30 | NUR ---
HAND-OFF: Report given to LEANA Malcolm.
--- NOTE | 2018-07-06 07:52 | NUR ---
NURSE NOTES: During shift change patient alert awake with out no distress, reported no BM, pain 6/10, eating breakfast. VS with in the normal range.
[2018-07-06] MEDS: Docusate 100mg cap ORAL SCH ×2 (08:09→18:08)
[2018-07-06 08:31] VITALS: BP 109/68
[2018-07-06 12:00] VITALS: BP 104/69
[2018-07-06 16:00] VITALS: BP 111/68
--- NOTE | 2018-07-06 17:30 | NUR ---
NURSE NOTES: pATIENT IS AAOX4. vss. No pain noted. Awaiting discharge. No acute distress. Bed low, call light within reach.
--- NOTE | 2018-07-06 17:30 | Progress Note ---
DATE: 07/06/2018 ACUTE PAIN MANAGEMENT PHYSICIAN PROGRESS NOTE MEDICATIONS: Medication administration record reviewed. Medications include Chloraseptic spray, Roxicodone, Zofran Narcan, Pepcid, Marinol, Colace, Benadryl, Dulcolax, Mylanta, Tylenol. LABORATORY STUDIES: No interval laboratory studies. VITAL SIGNS: Within normal limits. Afebrile, pulse 77, respirations 18, blood pressure 105/66, oxygen saturation 93% on room air. I spent over 60 minutes in consultation today. I had multiple discussions with the surgeon, Dr. Gilliam, along with the nurse, LEANA Malcolm. I spoke with the overnight nurse, Zaynab as well. We started the patient on advancing a regular diet this morning. The patient is tolerating the diet well. She has chronic nausea at home and states that her nausea is at its baseline. She has a good appetite and is hungry. I examined her abdomen this morning and her abdomen is soft. There was no sign of distension or rigidity. The patient has increased her flatus. With still no bowel movement occurring, yesterday we dosed the patient with Relistor 12 mg subcutaneously at [address] Gilliam also has dosed the patient with 300 mL of magnesium citrate over the past 24 hours. Surprisingly, there still has not yet been a bowel movement. I spoke with the hospital pharmacist, Tj, and we will dose the patient with Dulcolax suppository x1 now. I would expect that the laxative regimen, that increased ambulation should effect a bowel movement in the short-term. The patient has normal vital signs and has been more compliant using her incentive spirometer. We have backed off on the opioid usage. Dilaudid has been completely discontinued and we decreased the frequency on the oxycodone instant release to every 6 hours p.r.n. The patient is tolerating this pain medication interval. Physical Therapy will continue to encourage aggressive ambulation. If the Dulcolax suppository is not effective in the next 6 hours or so, perhaps [employer] or oral Gastrografin may be considered to help hasten her discharge planning. Vikram Barrett M.D. DR: PITO JOB#: [id number] CC:
--- NOTE | 2018-07-06 19:49 | NUR ---
HAND-OFF: Report given to LEANA Solis patient discharge instruction given, patient has a follow up appointment on 07/18/18 and pain medication refilled and given to patient, stable condition instructed to keep surgical site dry and intact till the follow up appointment as Dr. Browne instructed. patient verbalized understanding.
[2018-07-06 20:00] VITALS: BP 119/65
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
--- NOTE | 2018-07-06 20:20 | NUR ---
NURSE NOTES: Patient discharged. VSS, In stable condition. Brought down via wheelchair. Left with friend to go home in private vehicle.
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
== END 2018-07-06 20:20 | disposition home or self-care (01) | DRG 460 ==
LOC: SDSOVERFLO 08:20 → 3E 14:10
PROC: 4A11X4G Monitoring of Peripheral Nervous Electrical Activity, Intraoperative, External Approach (ICD-10-PCS; principal; 2018-07-01 10:00)
PROC: 0SG30A0 Fusion of Lumbosacral Joint with Interbody Fusion Device, Anterior Approach, Anterior Column, Open Approach (ICD-10-PCS; principal; 2018-07-01 10:00)
PROC: 0ST40ZZ Resection of Lumbosacral Disc, Open Approach (ICD-10-PCS; principal; 2018-07-01 10:00)
DX: M53.2X7 Spinal instabilities, lumbosacral region (principal); M51.27 Other intervertebral disc displacement, lumbosacral region; G89.18 Other acute postprocedural pain
CPT/HCPCS: 36415; 72020; 76000; 81025; 86850; 86900; 86901; 87081; 94003; 94150; J2370; J2405; J2710